=== PATIENT | female | born 1985 | race Two or more races ===

== ENCOUNTER 2018-05-03 01:58 | Emergency (ER) | payer MEDICAID ==
[~2018-05-03] VITALS: Ht 167.6 cm; Wt 56.7 kg
[2018-05-03] MEDS ORDERED: DILANTIN (02:19)
--- NOTE | 2018-05-03 02:26 | NUR ---
PT A/OX4, RESPONSIVE TO VERBAL AND TACTILE STIMULI. PT C/O ABSCESS ON R LEG (BEHIND THE KNEE). ABSCESS IS RED AND SWOLLEN IN APPEARANCE, WARM TO THE TOUCH, AND PT REPORTS TENDERNESS AT SITE. PT DENIES C/P, SOB, N/V/D.
--- NOTE | 2018-05-03 02:35 | NUR ---
DPatient discharged to home in stable conditon. Written and verbal after care instructions given. Patient verbalizes understanding of instructions. PT D/C WITH PRESCRIPTION. PT SELF-AMBULATED WITHOUT DIFFICULTY. ALL BELONGINGS W/ PT.
[2018-05-03 02:36] VITALS: BP 128/88
== END 2018-05-03 02:37 | disposition home or self-care (01) ==
LOC: ER 02:04
DX: L03.115 Cellulitis of right lower limb (principal); J45.909 Unspecified asthma, uncomplicated; Z88.0 Allergy status to penicillin
CPT/HCPCS: A4663